=== PATIENT | male | born 1990 | race Hispanic/Latino ===

== ENCOUNTER 2017-04-10 13:48 | Emergency (ER) | payer SELFPAY ==
[2017-04-10 16:25] VITALS: BP 120/74
--- NOTE | 2017-04-10 18:25 | Emergency Department Report ---
Entered by BROOKLYNN MAO, acting as scribe for WILLIAM MCKINNEY NP. - General Chief complaint: Skin/Abscess/Foreign Body Stated complaint: POSS BITE TO RIGHT ANKLE Time Seen by Provider: 04/10/17 14:17 Source: patient Mode of arrival: Ambulatory Limitations: No Limitations - History of Present Illness Initial comments: This is a 27 y/o male nontoxic, well nourished in appearance, no acute signs of distress presents with right lower leg pain that started this morning. Patient stated he noticed this this morning. Patient denies joint pain or swelling. Normal ROM. Sx include erythema but pt denies any itching, blisters, crusting, swelling, fever, chills, PACHECO, chest pain, SOB, abd pain, n/v, tingling or numbness. Pt is ambulatory. No additional Sx. NKDA. BARDALES complaint: discoloration (with erythema) -: This morning Location: generalized (lower right leg) Severity: mild Severity scale (0 -10): 5 Quality: constant Consistency: constant Improves with: none Worsens with: movement Context: none Associated symptoms: denies other symptoms, other (erythema) Treatments Prior to Arrival: none - Related Data Previous Rx's Medication Instructions Recorded Last Taken Type Clindamycin [Clindamycin CAP] 450 mg PO Q8HR 7 Days 04/10/17 Unknown Rx Ibuprofen [Motrin 600 MG tab] 600 mg PO Q8H PRN #15 tablet 04/10/17 Unknown Rx Allergies Allergy/AdvReac Type Severity Reaction Status Date / Time No Known Allergies Allergy Verified 08/25/16 10:34 Abscess Boil HPI - HPI Chief Complaint: Skin/Abscess/Foreign Body Stated Complaint: POSS BITE TO RIGHT ANKLE Time Seen by Provider: 04/10/17 14:17 Home Medications: Previous Rx's Medication Instructions Recorded Last Taken Type Clindamycin [Clindamycin CAP] 450 mg PO Q8HR 7 Days 04/10/17 Unknown Rx Ibuprofen [Motrin 600 MG tab] 600 mg PO Q8H PRN #15 tablet 04/10/17 Unknown Rx Allergies/Adverse Reactions: Allergies Allergy/AdvReac Type Severity Reaction Status Date / Time No Known Allergies Allergy Verified 08/25/16 10:34 ED Review of Systems Constitutional: denies: chills, fever Eyes: denies: eye pain, eye discharge, vision change ENT: denies: ear pain, throat pain Respiratory: denies: cough, shortness of breath, wheezing Cardiovascular: denies: chest pain, palpitations Endocrine: no symptoms reported Gastrointestinal: denies: abdominal pain, nausea, diarrhea Genitourinary: denies: urgency, dysuria Musculoskeletal: denies: back pain, joint swelling, arthralgia Skin: other (erythema to the right distal medial tibial region but pt denies itching or swelling. ). denies: rash, lesions Neurological: denies: headache, weakness, paresthesias Psychiatric: denies: anxiety, depression Hematological/Lymphatic: denies: easy bleeding, easy bruising ED Past Medical Hx - Past Medical History Previous Medical History?: No Hx Hypertension: Yes - Surgical History Past Surgical History?: No - Social History Smoking Status: Current Every Day Smoker Substance Use Type: Alcohol, Methamphetamines - Medications Home Medications: Home Medications Medication Instructions Recorded Confirmed Last Taken Type Clindamycin [Clindamycin CAP] 450 mg PO Q8HR 7 Days 04/10/17 Unknown Rx Ibuprofen [Motrin 600 MG tab] 600 mg PO Q8H PRN #15 tablet 04/10/17 Unknown Rx ED Physical Exam - General Limitations: No Limitations General appearance: alert, in no apparent distress - Head Head exam: Present: atraumatic, normocephalic - Eye Eye exam: Present: normal appearance, PERRL, EOMI Pupils: Present: normal accommodation - ENT ENT exam: Present: normal exam, normal orophraynx, mucous membranes moist, TM's normal bilaterally, normal external ear exam. Absent: mucous membranes dry - Neck Neck exam: Present: normal inspection, full ROM. Absent: tenderness, meningismus, lymphadenopathy, thyromegaly - Respiratory Respiratory exam: Present: normal lung sounds bilaterally. Absent: respiratory distress, wheezes, rales, rhonchi, stridor, chest wall tenderness, accessory muscle use, decreased breath sounds, prolonged expiratory - Cardiovascular Cardiovascular Exam: Present: regular rate, normal rhythm, normal heart sounds. Absent: bradycardia, tachycardia, irregular rhythm, systolic murmur, diastolic murmur, rubs, gallop - GI/Abdominal GI/Abdominal exam: Present: soft, normal bowel sounds. Absent: distended, tenderness, guarding, rebound, rigid, diminished bowel sounds, mass, bruit - Rectal Rectal exam: Present: deferred - Extremities Exam Extremities exam: Present: normal inspection, full ROM, normal capillary refill. Absent: tenderness, pedal edema, joint swelling, calf tenderness - Back Exam Back exam: Present: normal inspection, full ROM. Absent: tenderness, CVA tenderness (R), CVA tenderness (L), muscle spasm, paraspinal tenderness, vertebral tenderness, rash noted - Neurological Exam Neurological exam: Present: alert, oriented X3, CN II-XII intact, normal gait, reflexes normal. Absent: altered, abnormal gait, motor sensory deficit - Psychiatric Psychiatric exam: Present: normal affect, normal mood - Skin Skin exam: Present: warm, dry, intact, erythema (to right distal medial tibial region. warm to touch. No swelling. No pus. No fluctuance. No drainage. No joint swelling or joint redness. Normal ROM. ). Absent: normal color, rash, cyanosis, diaphoretic, urticaria, vesicles, petechiae, pallor, abrasion, ecchymosis, other (flunctuance, swelling, pus, drainage, joint swelling, joint redness noted on the distal medial tibial region) ED Course Vital Signs 04/10/17 14:04 Temperature 98.1 F Pulse Rate 101 H Respiratory 16 Rate Blood Pressure 123/78 O2 Sat by Pulse 97 Oximetry ED Medical Decision Making - Medical Decision Making Ed course: This is a 53-year-old male that presents with cellulitis. 1- after my physical exam, patient received clindamycin by mouth at the time of discharge. 2- A permanent marker has been used and outlined this a cellulitic area and patient was instructed to observe symptoms of increasing redness past the marker or pus, drainage or fever or chills and to report back to emergency room as soon as possible. 3- patient received ibuprofen for pain and some of discharge. 4- at time time of discharge, the patient does not seem toxic or ill in appearance. No acute signs of distress noted. Patient agrees to discharge treatment plan of care. No further questions noted by the patient. 5- patient was instructed to follow up in 3-5 days at her primary care doctor. ED Disposition Clinical Impression: Cellulitis Qualifiers: Site of cellulitis: extremity Site of cellulitis of extremity: lower extremity Laterality: right Qualified Code(s): L03.115 - Cellulitis of right lower limb Disposition: - TO HOME OR SELFCARE Is pt being admited?: No Does the pt Need Aspirin: No Condition: Stable Instructions: Cellulitis (ED), Clindamycin (By mouth), Ibuprofen (By mouth) Additional Instructions: Observe symptoms of increasing redness past the marker or pus, drainage or fever or chills and to report back to emergency room as soon as possible. Take clindamycin as prescribed and ibuprofen as needed. Prescriptions: Clindamycin [Clindamycin CAP] 450 mg PO Q8HR 7 Days Ibuprofen [Motrin 600 MG tab] 600 mg PO Q8H PRN #15 tablet PRN Reason: Pain Referrals: PRIMARY CAREMD [Primary Care Provider] - 3-5 Days [facility] [Outside] - 3-5 Days [facility] [Outside] - 3-5 Days BENNETT ALLEN JR, MD [Staff Physician] - 3-5 Days Forms: Work/School Release Form(ED) This documentation as recorded by the DAYLIN tai RYAN,accurately reflects the service I personally performed and the decisions made by ,WILLIAM MCKINNEY, TOOL ENGINEER.
== END 2017-04-10 16:15 | disposition home or self-care (01) ==
LOC: ED 13:48
DX: L03.115 Cellulitis of right lower limb (principal); I10 Essential (primary) hypertension; F17.200 Nicotine dependence, unspecified, uncomplicated; F19.10 Other psychoactive substance abuse, uncomplicated
CPT/HCPCS: 99282